=== PATIENT | female | born 1970 | race Caucasian/White ===

== ENCOUNTER → 2017-01-08 | Outpatient (CLI) | payer BC ==
[~2017-01-08] VITALS: Ht 167.6 cm; Wt 70.6 kg
[~2017-01-08] MED LIST: BUTA1TAB30 PO; DO NOT ADM ANY ANTICOAGULANT DRUGS PRN; FLUMAZENIL 0.5 MG/5 ML VIAL IV PRN; MULTTAB67 PO; NALOXONE HCL 0.4 MG/ML AMP IV PRN; ONDANSETRON HCL 4 MG/2 ML VIAL IV PUSH ONE; PROPOFOL 200 MG/20 ML AMP IV ONE; SLOW47.5 PO
[2017-01-08 09:20] VITALS: BP 175/98; PULSE 67; RESP 18; TEMP 98.3; O2SAT 100
--- NOTE | 2017-01-08 11:39 | GIPROC ---
[facility] [address] [facility]. [facility], [address] EGD PROCEDURE REPORT EXAM DATE: 01/08/2017 PATIENT NAME: Catrina Packer MR #: [id number] BIRTHDATE: 1970 ATTENDING: Peterson Lema MD ORDER #: [id number] [employer] AIDE TEACHER: Dianelys Young and Tiffany Mujica STATUS: outpatient INDICATIONS: The patient is a 46 yr old female here for an EGD due to history of sleeve gastrectomy, developed early satiety and severe anemia PROCEDURE PERFORMED: EGD w/ ballon dilation of gastric sleeve MEDICATIONS: Per Anesthesia and None. TOPICAL ANESTHETIC: none CONSENT: The patient understands the risks and benefits of the procedure and understands that these risks include, but are not limited to: sedation, allergic reaction, infection, perforation and/or bleeding. Alternative means of evaluation and treatment include, among others: physical exam, x-rays, and/or surgical intervention. The patient elects to proceed with this endoscopic procedure. medical equipment was checked for proper function. Hand hygiene and appropriate measures for infection prevention was taken. After the risks, benefits and alternatives of the procedure were thoroughly explained, Informed consent was verified, confirmed and timeout was successfully executed by the treatment team. The patient was anesthetized with anesthesia and the Pentax EG-[id number] endoscope was introduced through the mouth and advanced to the second portion of the duodenum. The gastric sleeve had mild stricturing at 50cm from incisions ballon dilation done x2 with 20 ballon for 30 seconds. Retroflexion was not performed The gastroscope was then slowly withdrawn and removed. Mild stricturing at 50cm from incisors, no evidence of bleeding or vascular malformation. ADVERSE EVENTS: There were no complications. IMPRESSIONS: 1. Mild stricturing at 50cm from incisors, no evidence of bleeding or vascular malformation 2. Retroflexion was not performed RECOMMENDATIONS: Consider Colonoscopy PATIENT CONDITION: fair DISPOSITION: Home REPEAT EXAM: Return as needed for EGD with dilatation Peterson Lema MD eSigned: Peterson Lema MD 01/08/2017 11:39 AM cc: Nael Simon M.D.
[2017-01-08 12:05] VITALS: BP 166/97; PULSE 60; RESP 16; TEMP 98; O2SAT 99
== END ==
LOC: HOR 08:39
PROVIDERS: ATTEND Surgery
DX: D64.9 Anemia, unspecified (principal); R68.81 Early satiety; Z90.3 Acquired absence of stomach [part of]; K22.2 Esophageal obstruction
CPT/HCPCS: 00740; 43245; C1726; J2405

== ENCOUNTER 2017-02-10 20:26 | Emergency (ER) | payer BC ==
[~2017-02-10] VITALS: Ht 170.2 cm; Wt 77.0 kg
[~2017-02-10 20:26] MED LIST changes: -DO NOT ADM ANY ANTICOAGULANT DRUGS PRN; -FLUMAZENIL 0.5 MG/5 ML VIAL IV PRN; -NALOXONE HCL 0.4 MG/ML AMP IV PRN; -ONDANSETRON HCL 4 MG/2 ML VIAL IV PUSH ONE; -PROPOFOL 200 MG/20 ML AMP IV ONE
[2017-02-10 20:29] VITALS: BP 205/105; PULSE 74; RESP 16; TEMP 98.4; O2SAT 99
[2017-02-10] MEDS ORDERED: SODIUM CHLORIDE 0.9% FLUSH 10 ML FLUSH IVF PRN (22:30)
--- NOTE | 2017-02-10 22:32 | PD ---
HPI Chief Complaint: Back/ Neck Pain or Injury Time Seen by Provider: 22:23 Travel History International Travel<30 days: No Contact w/Intl Traveler<30days: No Traveled to known affect area: No History of Present Illness HPI The patient is a 46 year old female who presents to the [facility] emergency department with a history of awakening this morning with back pain. The pain is located in bilateral flanks. She reports that the pain has been constant. She reports that the pain is worse with taking a deep breath. She reports that it is also worse with lying flat. She denies any injury or trauma. She denies any prior history of high blood pressure, however on arrival she was noted to have a blood pressure 209/115. The patient reports that the pain is causing her to breathe shallowly. She denies any chest pain. She denies having any abdominal pain. She denies having any nausea, vomiting, or diarrhea. She denies having any dysuria, hematuria, urinary urgency, or frequency. She does however report a recent medical history of anemia. She reports that her hemoglobin went down to 6.4. She reports that 3-4 weeks ago she underwent an outpatient blood transfusion of 2 units of packed red blood cells. She also reports that she underwent upper endoscopy which was negative for source of bleed. She reports that they did not do a colonoscopy, as she had one last year prior to bariatric surgery that was unremarkable. The patient underwent bariatric surgery for weight loss in November 2015 and has had a 120 pound weight loss. She denies having any vitamin deficiencies other than an iron deficiency for which she is on a supplement. She reports that she has an appointment with a canvas cutter machine and oncologist regarding this anemia on February 17. Her primary care physician is in [place], [place]. On review of systems, the patient denies any recent fevers, cough, congestion, neck pain, or neurologic symptoms. [facility] Past Medical History Narrative Medical The patient's past medical history is significant for migraine headaches, history of being prediabetic prior to bariatric surgery. Anemia: Yes Autoimmune Disease: Yes (PALLANDROMIC RHEUMATOID ARTHRITIS) Cancer: No Cardiovascular Problems: No Diabetes: No Endocrine: No Gastrointestinal Disorders: Yes (ESOPH. DILATION) Genitourinary: No Hepatitis: No Hiatal Hernia: No Hypertension: No (prev hx of) Immune Disorder: No Medical other: No Musculoskeletal: No Neurologic: Yes (migraines) Psychiatric: No Reproductive: No Respiratory: No Thyroid Disease: No ?: Not : 3 Para: 3 Past Surgical History Narrative Surgical The patient's past surgical history is significant for bariatric surgery in November 2015, cholecystectomy, left shoulder surgery, tonsil and adenoidectomy. Abdominal Surgery: Yes (cholecystectomy) AICD: No Cardiac Surgery: No Cholecystectomy: Yes (NOVEMBER 1998) Ear Surgery: No Endocrine Surgery: No Eye Surgery: No Genitourinary Surgery: No Gynecologic Surgery: No Joint Replacement: No Neurologic Surgery: No Oral Surgery: Yes (T&A) Pacemaker: No Thoracic Surgery: No Other Surgery: Yes (bariactric surgery 2015 ) Social History Alcohol Use: No Tobacco Use: No Substance Use: No Allergies-Medications (Allergen,Severity, Reaction): Coded Allergies: No Known Allergies (Verified , 02/10/17) Reported Meds & Prescriptions Reported Meds & Active Scripts Active Flexeril (Cyclobenzaprine HCl) 10 Mg Tab 10 Mg PO TID PRN Lortab (Hydrocodone-Acetaminophen) 5-325 Mg Tab 1 Tab PO Q6H PRN Lisinopril 10 Mg Tab 10 Mg PO DAILY Reported Iron Slow Release (Ferrous Sulfate Dried) 45 Mg Tab 45 Mg PO TID Multiple Vitamin 1 Tab 1 Tab PO BID Review of Systems Except as stated in HPI: all other systems reviewed are Neg General / Constitutional: No: Fever Eyes: No: Visual changes HENT: No: Headaches Cardiovascular: No: Chest Pain or Discomfort Respiratory: Positive: Pleuritic Pain, No: Shortness of Breath Gastrointestinal: No: Abdominal Pain Genitourinary: Positive: Flank Pain (bilateral flank pain), No: Dysuria Musculoskeletal: Positive: Myalgias, Pain Skin: No Rash Neurologic: No: Weakness Psychiatric: No: Depression Endocrine: No: Polydipsia Hematologic/Lymphatic: No: Easy Bruising Physical Exam Narrative General: The patient is a well-developed well-nourished female, uncomfortable appearing on arrival later to pain. Head and Neck exam: Head is normocephalic atraumatic. Eyes: EOMI, pupils are equal round and reactive to light. Nose: Midline septum with pink mucous membranes Mouth: Dentition unremarkable. Moist mucus membranes. Posterior oropharynx is not erythematous. No tonsillar hypertrophy. Uvula midline. Airway patent. Neck: No palpable lymphadenopathy. No nuchal rigidity. No thyromegaly. Cardiovascular: Regular rate and rhythm without murmurs, gallops, or rubs. No pulse deficit to the extremities and simultaneous auscultation and palpation of her radial artery. Lungs: Clear to auscultation bilaterally. No wheezes, rhonchi, or rales. Abdomen: Soft, without tenderness to palpation in all 4 quadrants of the abdomen. No guarding, rebound, or rigidity. Negative [place] sign. Extremities: No clubbing or cyanosis. The patient has trace pedal edema bilateral lower extremity. 2+ pulses in all 4 extremities. No calf tenderness on palpation. Negative [place] sign. No palpable cords. Back: No spinous process tenderness to palpation. No costovertebral angle tenderness to palpation. No step-off or crepitus. No erythema or ecchymosis. Neurologic Exam: Grossly nonfocal. Skin Exam: No rash noted. Intact skin that is warm and dry. Data Data Last Documented VS Vital Signs Date Time Temp Pulse Resp B/P Pulse Ox O2 Delivery O2 Flow Rate FiO2 02/11/17 01:54 186/95 02/10/17 22:39 100 Room Air 02/10/17 20:29 98.4 74 16 Orders Electrocardiogram (02/10/17 22:23) B-Type Natriuretic Peptide (02/10/17 22:23) Ckmb (Isoenzyme) Profile (02/10/17 22:23) Complete Blood Count With Diff (02/10/17 22:23) Comprehensive Metabolic Panel (02/10/17 22:23) D-Dimer (02/10/17 22:23) Magnesium (Mg) (02/10/17 22:23) Prothrombin Time / Inr (Pt) (02/10/17 22:23) Act Partial Throm Time (Ptt) (02/10/17 22:23) Troponin I (02/10/17 22:23) Lipase (02/10/17 22:23) Chest, Single Ap (02/10/17 22:23) Ecg Monitoring (02/10/17 22:23) Bilateral Bp Monitoring (02/10/17 22:23) Iv Access Insert/Monitor (02/10/17 22:23) Oximetry (02/10/17 22:23) Oxygen Administration (02/10/17 22:23) Sodium Chloride 0.9% Flush (Ns Flush) (02/10/17 22:30) Cta Thor Abd Aorta W Iv C W3d (02/10/17 22:23) C-Reactive Protein (Crp) (02/10/17 22:23) Urinalysis - C+S If Indicated (02/10/17 22:23) Ed Urine Pregnancytest Poc (02/10/17 22:23) Morphine Inj (Morphine Inj) (02/10/17 22:45) Ondansetron Inj (Zofran Inj) (02/10/17 22:45) Iohexol 350 Inj (Omnipaque 350 Inj) (02/10/17 23:59) Ketorolac Inj (Toradol Inj) (02/11/17 01:15) Orphenadrine Inj (Norflex Inj) (02/11/17 01:15) Labs Laboratory Tests Test 02/10/17 02/10/17 21:30 22:56 Prothrombin Time 11.4 SEC Prothromb Time International 1.0 RATIO Ratio Activated Partial 26.7 SEC Thromboplast Time D-Dimer Quantitative (PE/DVT) 0.34 MG/L FEU White Blood Count 6.9 TH/MM3 Red Blood Count 4.87 MIL/MM3 Hemoglobin 10.8 GM/DL Hematocrit 34.2 % Mean Corpuscular Volume 70.3 FL Mean Corpuscular Hemoglobin 22.1 PG Mean Corpuscular Hemoglobin 31.5 % Concent Red Cell Distribution Width 28.6 % Platelet Count 178 TH/MM3 Mean Platelet Volume 8.8 FL Neutrophils (%) (Auto) 56.7 % Lymphocytes (%) (Auto) 32.0 % Monocytes (%) (Auto) 9.4 % Eosinophils (%) (Auto) 1.3 % Basophils (%) (Auto) 0.6 % Neutrophils # (Auto) 3.9 TH/MM3 Lymphocytes # (Auto) 2.2 TH/MM3 Monocytes # (Auto) 0.6 TH/MM3 Eosinophils # (Auto) 0.1 TH/MM3 Basophils # (Auto) 0.0 TH/MM3 CBC Comment AUTO DIFF Differential Comment AUTO DIFF CONFIRMED Platelet Estimate NORMAL Platelet Morphology Comment NORMAL Ovalocytes 1+ Acanthocytes OCC Keratocytes OCC Sodium Level 140 MEQ/L Potassium Level 3.5 MEQ/L Chloride Level 104 MEQ/L Carbon Dioxide Level 29.5 MEQ/L Anion Gap 7 MEQ/L Blood Urea Nitrogen 14 MG/DL Creatinine 0.91 MG/DL Estimat Glomerular Filtration 66 ML/MIN Rate Random Glucose 74 MG/DL Calcium Level 8.7 MG/DL Magnesium Level 2.1 MG/DL Total Bilirubin 0.5 MG/DL Aspartate Amino Transf 11 U/L (AST/SGOT) Alanine Aminotransferase 14 U/L (ALT/SGPT) Alkaline Phosphatase 65 U/L Total Creatine Kinase 33 U/L Troponin I LESS THAN 0.02 NG/ML C-Reactive Protein 1.02 MG/DL B-Type Natriuretic Peptide 45 PG/ML Total Protein 7.4 GM/DL Albumin 3.7 GM/DL Lipase 135 U/L Urine Color YELLOW Urine Turbidity CLEAR Urine pH 5.5 Urine Specific [place] 1.018 Urine Protein NEG mg/dL Urine Glucose (UA) NEG mg/dL Urine Ketones 10 mg/dL Urine Occult Blood NEG Urine Nitrite NEG Urine Bilirubin NEG Urine Urobilinogen LESS THAN 2.0 MG/DL Urine Leukocyte Esterase TRACE Urine RBC 1 /hpf Urine WBC 5 /hpf Urine Squamous Epithelial 1 /hpf Cells Urine Bacteria RARE /hpf Urine Mucus FEW /lpf Microscopic Urinalysis Comment CULT NOT INDICATED MDM Medical Decision Making Medical Screen Exam Complete: Yes Emergency Medical Condition: Yes Medical Record Reviewed: Yes Interpretation(s) Last Impressions Chest X-Ray 02/10/172222 Signed Impressions: Service Date/Time: Friday, February 10, 2017 22:29 - CONCLUSION: The lungs are clear. Davian Green MD Aorta CTA 02/10/172222 Signed Impressions: Service Date/Time: Saturday, February 11, 2017 00:10 - CONCLUSION: 1. The aorta is unremarkable in appearance with no evidence of dissection. 2. The uterus is mildly prominent and inhomogeneous. 3. Status post cholecystectomy. Troy Gabriel MD Differential Diagnosis Dissecting aortic aneurysm, versus pulmonary embolism, versus pyelonephritis, versus kidney stone, versus musculoskeletal strain, versus pleurisy Narrative Course During the course of the patients emergency department visit, the patients history, examination, and differential diagnosis were reviewed with the patient. The patient had IV access obtained and blood work sent for analysis. The patient was placed on a director cardiac with oximetry and blood pressure monitoring. The patient had an ECG done on arrival that shows a sinus rhythm heart rate is 62, no acute ST segment elevation, QRS duration is 90 ms, QTC or 415 ms. a CTA of the aorta was ordered to rule out dissection given the patient' s back pain and hypertension. The patient was initially provided morphine 4 mg IV, Zofran 4 mg IV for pain. After dissection was ruled out the patient was given Toradol 15 mg IV followed by Norflex 60 milligrams IM. The patients laboratory studies were reviewed and remarkable for a white count of 6.9, hemoglobin 10.8, platelets 178, monocytes 9.4, CMP is remarkable for a GFR 66, AST 11, lipase 135, CPK 33, troponin I less than 0.02, C-reactive protein 1.02, BNP 45, lipase 135, PT PTT within normal limits, d-dimer 0.34 decreased the likelihood of pulmonary embolism in this patient with no other significant risk factors. Urinalysis shows 10 ketones, trace leukocyte esterase , culture not indicated. Radiology studies were reviewed and remarkable for a chest x-ray that shows the lungs without any acute cardiopulmonary abnormality. CT scan of the aorta shows that the aorta is unremarkable in appearance with no evidence of dissection. The uterus is mildly prominent an inhomogeneous, status post cholecystectomy. The patient's pain began to improve. The patient's repeat blood pressure 195/ 114. The patient was given Toradol for pain, Norflex IM for muscle relaxation after the rest of her workup was negative. I did review the patient's vital signs from prior visits and the patient's blood pressure has been elevated in the past. We did discuss the fact that her blood pressure was elevated at the end of December of 2016 when it was last documented at this facility. The patient reports that her elevated blood pressure may be still related to pain and anxiety about being in the emergency department. The patient is hesitant to start a blood pressure medication. I therefore recommended close follow-up with her primary care physician. I recommended that she call the office in the morning and discuss options with her physician. She was given a prescription for lisinopril at discharge to be started if agreeable with her primary care physician and repeat blood pressure as an outpatient is elevated. The patient after being given Norflex and Toradol had an improvement of her blood pressure down to 186/95. We again had a discussion about the patient's blood pressure continued to be elevated. She agrees to close follow-up. The patient is resting comfortably and feels better, is alert and in no distress. The patients results and examination findings were discussed with the patient. The repeat examination is unremarkable and benign. The history, exam, diagnostic testing, and current condition do not suggest any significant pathology to warrant further testing, continued ED treatment, admission, or surgical evaluation at this point. The vital signs have been stable. The patient does not have uncontrollable pain, intractable vomiting, or other significant symptoms. The patient's condition is stable and appropriate for discharge. The patient will pursue further outpatient evaluation with a primary care physician or other designated or consulting physician as indicated in the discharge instructions. The patient expressed understanding and was agreeable with this plan. Diagnosis Primary Impression: Low back pain Qualified Code: M54.5 - Acute bilateral low back pain without sciatica Additional Impression: Hypertension Qualified Code: I10 - Hypertension, unspecified type Referrals: Primary Care Physician 1 day Patient Instructions: Acute Low Back Pain (ED), General Instructions, Hypertension (ED) Additional Instructions: The patient is instructed to follow-up with her primary care physician in the morning. The patient is instructed to recheck her blood pressure as an outpatient. The patient is instructed to start on blood pressure medication if it continues to be elevated. Med/Other Pt SpecificInfo: Prescription(s) given Scripts Cyclobenzaprine (Flexeril)10 Mg Tab10 Mg PO TID PRN (SPASM) #15 TAB Ref 0 Prov:Michelle Kim MD 02/11/17 Hydrocodone-Acetaminophen (Lortab)5-325 Mg Tab1 Tab PO Q6H PRN (PAIN) #16 TAB Ref 0 Prov:Michelle Kim MD 02/11/17 Lisinopril 10 Mg Tab10 Mg PO DAILY #30 TAB Ref 0 Prov:Michelle Kim MD 02/11/17 Disposition: 01 DISCHARGE HOME Condition: Stable Michelle Kim MD Feb 10, 2017 22:31
[2017-02-10 22:39] VITALS: BP_SYST 208; BP_SYST 227; BP_DIAS 103; BP_DIAS 115; O2SAT 100
[2017-02-10] MEDS ORDERED: ONDANSETRON HCL 4 MG/2 ML VIAL IV PUSH ONE (22:45)
[2017-02-10] MEDS ORDERED: MORPHINE SULFATE 4 MG/ML INJ IV PUSH ONE (22:45)
--- NOTE | 2017-02-10 22:55 | RADRPT ---
EXAM DATE/TIME: 02/10/2017 22:29 [facility] COMPARISON: No previous studies available for comparison. INDICATIONS : Back pain today. High blood pressure tonight. MEDICAL HISTORY : None. SURGICAL HISTORY : None. ENCOUNTER: Initial ACUITY: 1 day PAIN SCORE: 7/10 LOCATION: Bilateral chest FINDINGS: A single view of the chest demonstrates the lungs to be symmetrically aerated without evidence of mas s, infiltrate or effusion. The cardiomediastinal contours are unremarkable. Osseous structures are intact. CONCLUSION: The lungs are clear. Davian Green MD on February 10, 2017 at 22:53 Board Certified Radiologist. This report was verified electronically.
[2017-02-10 23:23] LABS: AUTOMATED NEUTROPHIL # 3.9 TH/MM3 (1.8-7.7); BASOPHIL % 0.6 % (0.0-2.0); EOSINOPHIL # 0.1 TH/MM3 (0-0.4); EOSINOPHIL % 1.3 % (0.0-4.0); HEMATOCRIT 34.2 % (35.0-46.0); LYMPHOCYTE # 2.2 TH/MM3 (1.0-4.8); MEAN CELL VOLUME 70.3 FL (80.0-100.0); MEAN CORPUSCULAR HEMOGLOBIN 22.1 PG (27.0-34.0); MEAN CORPUSCULAR HGB CONC 31.5 % (32.0-36.0); MONO % 9.4 % (0.0-8.0); NEUT % 56.7 % (16.0-70.0); PLATELET COUNT 178 TH/MM3 (150-450); RED BLOOD COUNT 4.87 MIL/MM3 (4.00-5.30); RED CELL DISTRIBUTION WIDTH 28.6 % (11.6-17.2); WHITE BLOOD COUNT 6.9 TH/MM3 (4.0-11.0)
[2017-02-10 23:26] LABS: HEMO FLAGS AUTO DIFF
[2017-02-10 23:40] LABS: APTT (PATIENT) 26.7 SEC (24.3-30.1); PROTHROMBIN TIME - PATIENT 11.4 SEC (9.8-11.6)
[2017-02-10 23:47] LABS: BACTERIA, URINE RARE /hpf; BLOOD, URINE NEG (NEG); COMMENT (UR) CULT NOT INDICATED; CULTURE IF INDICATED CULT NOT INDICATED; GLUCOSE,URINE NEG (NEG); KETONE, URINE 10 mg/dL (NEG); MUCUS URINE FEW /lpf (OCC); NITRITE,URINE NEG (NEG); PH, URINE 5.5 (5.0-8.5); SQUAMOUS EPITHELIAL CELL URINE 1 /hpf (0-5); URINE COLOR YELLOW (YELLW/STRAW)
[2017-02-10 23:49] LABS: ALT (GPT) 14 U/L (10-53); AST (GOT) 11 U/L (15-37); BICARBONATE 29.5 MEQ/L (21.0-32.0); BLOOD UREA NITROGEN 14 MG/DL (7-18); CHLORIDE 104 MEQ/L (98-107); GLOMERULAR FILTRATION RATE 66 ML/MIN (>89); MAGNESIUM 2.1 MG/DL (1.5-2.5); POTASSIUM 3.5 MEQ/L (3.5-5.1); SODIUM (NA) 140 MEQ/L (136-145)
[2017-02-10 23:50] LABS: ANION GAP 7 MEQ/L (5-15)
[2017-02-10 23:59] LABS: ACANTHOCYTES OCC (NORMAL); ALKALINE PHOSPHATASE 65 U/L (45-117); KERATOCYTES OCC (NORMAL); OVALOCYTES 1+ (NORMAL); PLATELET ESTIMATE SMEAR NORMAL (NORMAL); PLATELET MORPHOLOGY NORMAL (NORMAL); SCAN/DIFF AUTO DIFF CONFIRMED; TOTAL BILIRUBIN ADULT 0.5 MG/DL (0.2-1.0)
[2017-02-10] MEDS ORDERED: IOHEXOL 350 MG/ML 10 ML VIAL (for RAD DIAG) IV ONE (23:59)
[2017-02-11] LABS: CREATINE KINASE 33 U/L (26-192)
--- NOTE | 2017-02-11 00:58 | RADRPT ---
EXAM DATE/TIME: 02/11/2017 00:10 [facility] COMPARISON: No previous studies available for comparison. INDICATIONS : Back pain. Evaluate for dissection. IV CONTRAST: 95 cc Omnipaque 350 (iohexol) IV RADIATION DOSE: 15.72 CTDIvol (mGy) MEDICAL HISTORY : Hypertension. Anemia SURGICAL HISTORY : Cholecystectomy. ENCOUNTER: Initial ACUITY: 1 day PAIN SCALE: 8/10 LOCATION: back TECHNIQUE: Volumetric scanning was performed using a multi-row detector CT scanner. The data was post processed with a variety of visualization algorithms including full volume maximum intensity projection, multi -planar sliding thin slab reformation, curved planar reformation, and surface rendering techniques. Using automated exposure control and adjustment of the mA and/or kV according to patient size, radiat ion dose was kept as low as reasonably achievable to obtain optimal diagnostic quality images. DICOM format image data is available electronically for review and comparison. FINDINGS: LUNGS: There is no consolidation or pneumothorax. No concerning pulmonary nodule is visualized. No pleural fluid is present. MEDIASTINUM: No abnormally enlarged lymph nodes by CT criteria. No axillary or hilar abnormalities are identified. ABDOMEN: The liver and spleen are free of focal defects. The pancreas demonstrates no abnormality. The adrenal glands are normal. The patient is status post cholecystectomy. This is best The kidneys demonstrate no evidence of solid renal mass or hydronephrosis. No free fluid or abdominal masses are identified. No para-aortic adenopathy is seen. PELVIS: No evidence of free fluid or pelvic mass. No abnormally enlarged inguinal or retroperitoneal lymph no tanmay are present. The bladder is unremarkable. Uterus is enlarged and mildly inhomogeneous. A small am ount of fluid in the cul-de-sac. THORACIC AORTA: The thoracic aortic root is normal with normal branching of the great vessels. There is no evidence of aneurysm or dissection. ABDOMINAL AORTA: The aorta is normal in caliber without aneurysm or dissection. The renal arteries are patent bilater ally. The proximal celiac and superior mesenteric arteries are patent and normal in diameter. PELVIC VESSELS: The internal iliac and external iliac vessels are patent without aneurysm or stenosis. CONCLUSION: 1. The aorta is unremarkable in appearance with no evidence of dissection. 2. The uterus is mildly prominent and inhomogeneous. 3. Status post cholecystectomy. Troy Gabriel MD on February 11, 2017 at 0:53 Board Certified Radiologist. This report was verified electronically.
[2017-02-11] MEDS ORDERED: KETOROLAC TROMETHAMINE 30 MG/ML (IVP) VIAL IV PUSH ONE (01:15)
[2017-02-11] MEDS ORDERED: ORPHENADRINE INJ 60 MG/2 ML AMP IM ONE (01:15)
[2017-02-11] MEDS ORDERED: LISI10TA3 PO (01:32)
[2017-02-11] MEDS ORDERED: HYDR-3533 PO (01:33)
[2017-02-11] MEDS ORDERED: CYCL1TAB29 PO (01:33)
[2017-02-11 01:54] VITALS: BP 186/95
--- NOTE | 2017-02-11 09:09 | EKG ---
Date Performed: 02/10/2017 Time Performed: 22:37:11 PTAGE: 46 years EKG: Sinus rhythm NORMAL ECG PREVIOUS TRACING : 11/07/2007 21.34 DOCTOR: Solomon Frank Interpretating Date/Time 02/11/2017 09:08:18
== END 2017-02-11 02:04 | disposition home or self-care (01) ==
LOC: NEPE 20:26
DX: M54.5 Low back pain (principal); I10 Essential (primary) hypertension; D64.9 Anemia, unspecified; R07.81 Pleurodynia; R10.9 Unspecified abdominal pain; M79.1 Myalgia; Z79.899 Other long term (current) drug therapy
CPT/HCPCS: 71010; 71275; 74174; 80053; 81001; 82550; 83690; 83735; 83880; 84484; 84703; 85025; 85379; 85610; 85730; 86140; 93005; 96372; 96374; 96375; 99285; J1885; J2270; J2360; J2405; Q9967